=== PATIENT | male | born 1980 | race Caucasian/White ===

== ENCOUNTER 2020-02-27 11:45 | Day surgery (SDC) | payer OTHER, SELFPAY ==
[2020-02-26 14:05] VITALS: BMI 21.7
[2020-02-27] VITALS (9 sets, daily range): BP systolic 99–111; BP diastolic 58–70; PULSE 46–62; RESP 12–20; TEMP 35.8–36.9; O2SAT 98–99
[2020-02-27] MEDS: scopolamine 1.5 Patch 1 PATCH TRANSDERMA (12:33)
[2020-02-27] MEDS: sodium chloride 0.9% 1,000 ML 30 ML IV (12:35)
--- NOTE | 2020-02-27 13:04 | ANES.PREANE2 ---
Pre-Anesthetic Assessment Pre-Anesthetic Assessment: Height/Weight: Height 1.83 m Weight 72.575 kg Temp Pulse Resp BP Pulse Ox 98.4 F 62 20 H 111/70 99 02/27/20 12:24 02/27/20 12:24 02/27/20 12:24 02/27/20 12:24 02/27/20 12:24 Preop Diagnosis: Chronic left testicular pain Proposed Procedure: Operation Date: 02/27/20 13:00 Proposed Procedures p Inguinal Orchiectomy placement of bilateral testicular prosthesis [id number] N50.812(Bilateral) - Reed Jose MD Was Beta Cordell taken within 24 hours: N/A Last intake: Intake Last Liquid Date 02/27/20 Last Liquid Time 08:00 Last Solid Date 02/26/20 Last Solid Time 22:00 Exam: Pre-Anes Outpt Exam: alert, oriented x 3, clear to auscultation bilaterally and regular rate & rhythm Airway: Submandibular: WNL Cervical ROM: WNL MP: 2 Dentition: Full History/ROS: No significant history except as noted and No significant complaints Pulmonary: Pulmonary: None reported CV/HEM: CV/HEM: None reported : : None reported Hepatic: Hepatic: None reported GI: GI: None reported Metabolic: Metabolic: None reported Musc/skel: Musc/skel: None reported Neuropsych: Neuropsych: None reported Anesthetic Plan: ASA status: 1 Anesthesia: Anesthesia Evaluation and General Risk of > 500 ml blood loss (7ml/kg in children): No Meds/Allergies Current Medications: Current Medications Generic Name Dose Route Start Last Admin Trade Name Freq PRN Reason Stop Dose Admin Sodium Chloride 1,000 mls @ 30 ml s/hr 02/27/20 08:15 02/27/20 12:35 Sodium Chloride 0.9% IV 02/28/20 08:14 30 mls/hr .Q24H FROY Administration PFSH Anesthesia PFSH: Medical History (Updated 01/27/20 @ 10:22 by Reed Jose MD) Testicular pain, left Postvasectomy pain, debilitating. Initially improved with left epididymectomy but recurred over time. Ultimately elected completion orchiectomy with testosterone replacement as a consult Surgical History (Updated 01/27/20 @ 10:22 by Reed Jose MD) H/O vasectomy History of orchiectomy right Epididymectomy Social History (Updated 01/27/20 @ 08:07 by Leonor Mayfield LPN) Smoking and tobacco status: current every day smoker Alcohol intake: current Alcohol intake frequency: holidays/special occasions only Marital status: Current occupational status: employed History of recent travel: No Data Anesthesia Cardiac Studies: No Data to Display
--- NOTE | 2020-02-27 13:23 | W.PM.OPSUD ---
Surgery/Procedure H&P Update DATE OF PROCEDURE: February 27, 2020 DATE H&P PERFORMED: 01/27/20 H&P UPDATE INFORMATION: I have reviewed H&P completed within last 30 days, I have examined patient prior to procedure, No changes to prior documentation and H&P is in [facility] on date indicated CHANGES TO PREVIOUS DOCUMENTATION: Viewed again the details benefits risks etc. with the patient and his . Questions answered. They seemed content. Ready to proceed. PREOP DIAGNOSIS: Chronic left testicular pain PLANNED PROCEDURE: Operation Date: 02/27/20 13:00 Proposed Procedures p Inguinal Orchiectomy placement of bilateral testicular prosthesis [id number] N50.812(Bilateral) - Reed Jose MD
[2020-02-27] MEDS: vancomycin 1,000 MG in sodium chloride 0.9% 250 ML 250 MG IV (13:30)
[2020-02-27] MEDS: vancomycin 1,000 MG SDV 1000 MG INTRA-ARTI (14:01)
[2020-02-27] MEDS: meperidine 50 mg/mL INJ 12.5 MG IVP (14:46)
--- NOTE | 2020-02-27 14:57 | P.OP_ITS ---
Operative Report Date of procedure: February 27, 2020 Pre-op Diagnosis: Chronic left testicular pain Post-op diagnosis: other Post-op Diagnosis: 1. Chronic left testicular pain 2. Surgical anorchia Procedure Done: 1. Left orchiectomy, scrotal approach 2. Bilateral testicular prosthesis placement ([employer]oplast [place], large) Implants: As above Specimens removed/disposition: Left testicle and spermatic cord, pathology Pathology: Left testicle and spermatic cord Surgeon: Jose Anesthesia: General Estimated blood loss: Less than 10 cc Urine output: Not measured Complications: None Findings: 1. Typical postoperative scarring in the left hemiscrotum from previous epididymectomy. Testicle appeared to be grossly normal otherwise. 2. Some loss of volume of the RIGHT hemiscrotal compartment due to previous right orchiectomy. Able to reconstruct compartment but the right testicular prosthesis rode slightly higher than the left because of the atrophy. Condition: stable Disposition: PACU Brief History: Yoan is a very pleasant 39-year-old white male has had a very complicated course following initially unremarkable vasectomy previously. He developed chronic postvasectomy pain syndrome with subsequent procedures including bilateral epididymectomy, right orchiectomy. The remaining left testicle was doing well but over time he started developing increasing pain with it and recently requested completion orchiectomy because of that pain. That decision was carefully researched by him and thoroughly examined with me in broad far reaching discussions. We reviewed requirement for lifelong testosterone replacement, prosthesis versus no prosthesis (he strongly advocated for prosthesis bilaterally), surgical benefits and risks. Ultimately he chose to proceed with left orchiectomy and bilateral testicular prosthesis placement. Procedure: After routine preoperative evaluation examination and obtaining of informed consent he was taken to the operating suite on 02/27/2020 where general anesthesia was administered without difficulty after appropriate timeout was performed, SCDs confirmed to be functioning, preoperative antibiotics administered, beta-b locker protocol confirmed. Prepped and draped in the usual sterile fashion in supine position pain careful attention to avoiding pressure points. A midline median raphae incision was made through his previous scar high in the scrotum. Made directly over the left testicle. Incision was taken down to the tunica vaginalis over the left testicle. There was a lot of scarring already present on previous left epididymectomy. Dissection was taken down to the cord and the scrotal attachments were divided with electrocautery and the cord was doubly clamped and divided just below the external ring. The proximal stump was doubly ligated and the and fulgurated. There was adequate space in the left hemiscrotal compartment. The right hemiscrotal compartment was atrophic. I was able to dissected the septum off of the right hemiscrotal compartment and was able to develop a adequate pocket avoiding thinning of the overlying skin at all points of dissection. A lot of care was directed at this particular point to avoid risk of skin damage and necrosis. The wound carefully inspected and hemostasis was obtained and confirmed and then vigorously irrigated with saline vancomycin solution. The testicular prosthesis were prepared at the back table according to protocol. Based on the comparison of size with his testicle a large prosthesis was chosen. Each prosthesis was placed in the compartment developed above. The right prosthesis would ride somewhat higher due to the atrophy of that right hemiscrotal compartment but the appearance was cosmetically good. Both prosthesis were removed. Prior to final insertion of the left prosthesis it was dipped in the antibiotic solution, a 3-0 Vicryl suture was passed through the securing point on the cephalad portion of the prosthesis and was tied. The LEFT prosthesis was placed into its appropriate location and the needle on the end of the suture was used to secure the cephalad portion of the prosthesis to the deep scrotal tissue pain careful attention to avoiding the penile urethral area and the RIGHT compartment. A couple of interrupted sutures were used to approximate the deep tissues over the prosthesis as well. This allowed good separation from the right compartment. The same procedure was then performed on the right side. Wound was then irrigated again and hemostasis was confirmed. The wound was closed in 2 layers utilizing 3-0 Vicryl for the dartos layer pain careful attention to avoiding injuring the prosthesis. The skin edges were then approximated with 4-0 Vicryl subcuticular fashion after infiltration with 25% M arcaine. Exofin skin sealant was used as a final layer. Sterile dressings were applied after the drying of the Exofin. Scrotal support and fluff dressings under the scrotal support were applied. He tolerated the procedure well without complications and was awakened in the operating room and returned to the recovery in stable condition. PLANS: 1. Prescription for Percocet, testosterone cypionate (200 mg IM every other week) sent to [facility]. Handwritten prescription for injection supplies also provided.
[2020-02-27] MEDS: oxyCODONE-APAP 5-325 mg Tablet 1 TAB PO (15:33)
== END 2020-02-27 16:08 | disposition home or self-care (01) ==
PROVIDERS: Visit Provider Urology
PROC: (CPT 54520; principal; 2020-02-27 13:00)
DX: N50.812 Left testicular pain (principal); Q55.0 Absence and aplasia of testis; F17.210 Nicotine dependence, cigarettes, uncomplicated
CPT/HCPCS: 54660; 12345; 88304; J0131; J2175; J2405; J2704; J2710; J3010; J3370; J3490; J7030; L8699

== ENCOUNTER → 2020-06-08 08:17 | Outpatient (BNVA) | payer OTHER, SELFPAY | PROVIDERS: Visit Provider Urology | DX: R79.89 Other specified abnormal findings of blood chemistry (principal); Q55.0 Absence and aplasia of testis; Z98.890 Other specified postprocedural states; F17.210 Nicotine dependence, cigarettes, uncomplicated | CPT/HCPCS: 84403 ==

== ENCOUNTER → 2020-12-14 07:44 | Outpatient (BNVA) | payer OTHER, SELFPAY | PROVIDERS: Visit Provider Urology | DX: Q55.0 Absence and aplasia of testis (principal); R79.89 Other specified abnormal findings of blood chemistry | CPT/HCPCS: 84403 ==

== ENCOUNTER → 2021-07-20 08:41 | Outpatient (BNVA) | payer OTHER, SELFPAY | PROVIDERS: PCP Nurse Practitioner Family; Visit Provider Urology | DX: R79.89 Other specified abnormal findings of blood chemistry (principal) | CPT/HCPCS: 84403 ==

== ENCOUNTER → 2022-07-18 10:05 | Outpatient (BNVA) | payer OTHER, SELFPAY | PROVIDERS: PCP Nurse Practitioner Family; Visit Provider Urology | DX: Q55.0 Absence and aplasia of testis (principal); R79.89 Other specified abnormal findings of blood chemistry | CPT/HCPCS: 81003 ==

== ENCOUNTER 2022-08-08 06:37 | Outpatient (CLI) | payer OTHER, SELFPAY ==
[2022-08-08 07:56] LABS: Testosterone Total - Urology 1085 ng/mL (300-1000)
== END 2022-08-08 06:38 | disposition home or self-care (01) ==
LOC: LAB 06:38
PROVIDERS: PCP Nurse Practitioner Family; Visit Provider Urology
DX: R79.89 Other specified abnormal findings of blood chemistry (principal)
CPT/HCPCS: 84403

== ENCOUNTER 2022-08-15 20:41 | Emergency (ER) | payer OTHER, SELFPAY ==
[2022-08-15 20:42] VITALS: BP 136/72; PULSE 107; RESP 20; TEMP 36.6; O2SAT 98; BMI 22.4
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
[2022-08-15] MEDS: HYDROcodone-acetaminophen 5-325 mg Tablet 1 TAB PO ×2 (20:57→21:51)
[2022-08-15] MEDS: ondansetron 4 MG Tablet PO (21:53)
--- NOTE | 2022-08-17 09:33 | DCPLANNER ---
Addendum entered by Iza Chong 09/20/22 07:45: Patient had a follow up appointment scheduled with ortho - patient did attend appointment Addendum entered by Iza Chong 08/22/22 13:52: Patient has a follow up appointment scheduled for Monday, August 22, 2022 at 3:[address] Ibarra at ortho. Clinic will call patient with appointment information. Original Note: marketing program manager had message to schedule a follow up appointment for patient with ortho. marketing program manager sent patients information to the front office staff at ortho. Patients information will be printed and reviewed. Clinic will call patient with appointment information.
== END 2022-08-15 22:07 | disposition home or self-care (01) ==
PROVIDERS: Emergency Provider Emergency Medicine
DX: S52.022A Displaced fracture of olecranon process without intraarticular extension of left ulna, initial encounter for closed fracture (principal); S52.042A Displaced fracture of coronoid process of left ulna, initial encounter for closed fracture; Z87.891 Personal history of nicotine dependence; S70.219A Abrasion, unspecified hip, initial encounter; V89.2XXA Person injured in unspecified motor-vehicle accident, traffic, initial encounter
CPT/HCPCS: 29105; 73080; 73502; 99283; Q0162

== ENCOUNTER → 2022-08-23 13:20 | Outpatient (BNVA) | payer SELFPAY | PROVIDERS: Referring Provider Emergency Medicine; Visit Provider Orthopaedic Surgery | DX: S42.402A Unspecified fracture of lower end of left humerus, initial encounter for closed fracture (principal); V89.2XXA Person injured in unspecified motor-vehicle accident, traffic, initial encounter | CPT/HCPCS: 73070 ==

== ENCOUNTER 2022-08-25 12:34 | Outpatient (CLI) | payer OTHER, SELFPAY ==
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
== END 2022-08-25 12:35 | disposition home or self-care (01) ==
LOC: RAD 12:35
PROVIDERS: PCP Family Medicine; Visit Provider Orthopaedic Surgery
DX: S42.402A Unspecified fracture of lower end of left humerus, initial encounter for closed fracture (principal); R60.0 Localized edema; X58.XXXA Exposure to other specified factors, initial encounter
CPT/HCPCS: 73200

== ENCOUNTER 2022-09-05 06:00 | Outpatient (RCR) | payer OTHER, SELFPAY | END 2022-09-19 23:59 | disposition home or self-care (01) | LOC: SOT 06:00 | PROVIDERS: PCP Family Medicine; Visit Provider Orthopaedic Surgery | DX: S42.402D Unspecified fracture of lower end of left humerus, subsequent encounter for fracture with routine healing (principal); X58.XXXD Exposure to other specified factors, subsequent encounter | CPT/HCPCS: 97022; 97110; 97165 ==

== ENCOUNTER 2022-09-20 06:00 | Outpatient (RCR) | payer OTHER, SELFPAY | END 2022-10-18 23:59 | disposition home or self-care (01) | LOC: SOT 06:00 | PROVIDERS: PCP Family Medicine; Visit Provider Orthopaedic Surgery | DX: S42.402D Unspecified fracture of lower end of left humerus, subsequent encounter for fracture with routine healing (principal); X58.XXXD Exposure to other specified factors, subsequent encounter | CPT/HCPCS: 97022; 97110 ==

== ENCOUNTER 2022-11-29 10:23 | Outpatient (CLI) | payer OTHER, SELFPAY ==
[2022-11-29 11:49] LABS: Testosterone Total - Urology 469 ng/mL (300-1000)
== END 2022-11-29 10:24 | disposition home or self-care (01) ==
LOC: LAB 10:26
PROVIDERS: PCP Family Medicine; Visit Provider Urology
DX: R79.89 Other specified abnormal findings of blood chemistry (principal)
CPT/HCPCS: 36415; 84403

== ENCOUNTER → 2023-08-13 14:46 | Outpatient (BNVA) | payer OTHER, SELFPAY | PROVIDERS: PCP Family Medicine; Visit Provider Family Medicine | DX: M25.512 Pain in left shoulder (principal) | CPT/HCPCS: 73030 ==